=== PATIENT | female | born 1985 | race Caucasian/White ===

== ENCOUNTER → 2020-01-29 09:01 | Outpatient (CLI) | payer BC, SELFPAY ==
--- NOTE | ~2020-01-29 | US_ITS ---
EXAMINATION: US OB <= 14 weeks fetus DATE: 01/29/2020 09:27 INDICATION: Uncertain gestational dates TECHNIQUE: Real-time transabdominal obstetric ultrasound. FINDINGS: No prior studies for comparison. The uterus measures 12.7 x 7.6 x 9 cm. There is an intrauterine gestational sac, with pole iden tified. There is a subchorionic hemorrhage measuring 2.2 x 4.6 x 0.7 cm. The crown rump length measur es 2.04 cm, which correlates with a estimated gestational age of 8 weeks 4 days. heart tones are identified measuring 166 BPM. IMPRESSION: 1. SL IUP with an EGA of 8 weeks, 4 days (EDC by current ultrasound of 09/05/2020). 2: Small subchorionic hemorrhage. Reviewed, dictated and finalized at location A. IL MANAGEMENT KEYHOLDER IMPRESSION: 1. SL IUP with an EGA of 8 weeks, 4 days (EDC by current ultrasound of 09/06/19). 2: Small subchorionic hemorrhage.
== END ==
PROVIDERS: PCP Family Medicine; Visit Provider Nurse Practitioner
DX: O36.8910 Maternal care for other specified fetal problems, first trimester, not applicable or unspecified (principal); Z3A.08 8 weeks gestation of pregnancy
CPT/HCPCS: 76801

== ENCOUNTER → 2020-02-21 07:30 | Outpatient (CLI) | payer BC, SELFPAY ==
--- NOTE | ~2020-02-21 | US_ITS ---
EXAMINATION: US OB limited DATE: 02/21/2020 07:53 INDICATION: Follow-up subchorionic hemorrhage. TECHNIQUE: Real-time transabdominal and transvaginal obstetric ultrasound. FINDINGS: Comparison to 01/29/2020 The uterus measures 15.2 x 8.2 x 10.1 cm.. There is an intrauterine gestational sac, with pole identified. heart tones are identified measuring 159 bpm. There is a persistent small subchorio michael hemorrhage measuring 2.4 x 1.7 x 1.2 cm. IMPRESSION: 1. Single living intrauterine with heart rate of 159 bpm. 2: Persistent small subchorionic hemorrhage measuring 1.7 x 1.2 x 2.4 cm. Reviewed, dictated and finalized at location A. VISION PRODUCTION ASSISTANT
== END ==
PROVIDERS: Visit Provider Obstetrics & Gynecology Gynecology
DX: O36.8910 Maternal care for other specified fetal problems, first trimester, not applicable or unspecified (principal); Z3A.00 Weeks of gestation of pregnancy not specified
CPT/HCPCS: 76815

== ENCOUNTER → 2020-03-06 07:31 | Outpatient (CLI) | payer BC, SELFPAY ==
--- NOTE | ~2020-03-06 | US_ITS ---
US OB limited DATE: 03/06/2020 07:54 INDICATION: Subchorionic hematoma follow-up TECHNIQUE: Real-time imaging and Doppler analysis COMPARISON: 02/21/2020 Limited obstetrical ultrasound FINDINGS: Subchorionic hemorrhage currently measures 2 x 2.5 x 0.9 cm, mildly diminished in size comp ared to approximately 2.4 x 2.5 x 12 mm on 02/21/2020. The fetus is in vertex presentation, longitudinal lie. heart rate 149 bpm. Anterior placenta, lower margin 5.5 cm above the internal os. Normal amount of amniotic fluid by subjective assessment. IMPRESSION: Mild improvement of subchorionic hematoma compared to 02/21/2020 Reviewed, dictated and finalized at Location A. Reviewed, dictated and finalized at location A. CULTIVATOR
== END ==
PROVIDERS: Visit Provider Obstetrics & Gynecology Gynecology
DX: O36.8910 Maternal care for other specified fetal problems, first trimester, not applicable or unspecified (principal); Z3A.00 Weeks of gestation of pregnancy not specified
CPT/HCPCS: 76815

== ENCOUNTER 2020-08-29 06:17 | Inpatient (IN) | payer BC, OTHER, SELFPAY ==
[2020-08-29] VITALS (66 sets, daily range): BP systolic 112–154; BP diastolic 58–100; PULSE 46–93; RESP 16–18; TEMP 36.3–36.9; O2SAT 89–100; BMI 25.9
[2020-08-29] MEDS: fentaNYL CITRATE INJ (*CRX) 100 MCG/2 ML VIAL 50 MCG IV PUSH (07:14)
[2020-08-29] MEDS: LACTATED RINGERS 1,000 ML 125 ML IV CONT ×3 (07:15→08:42)
[2020-08-29] MEDS: HYDROCORTISONE SODIUM SUCCINATE 100 MG/2 ML VIAL 50 MG IV PUSH (07:17)
[2020-08-29 07:18] LABS: Basophils Absolute Auto 0.1 K/mm3 (0.0-0.1); Basophils Percent Auto 0.5 % (0.2-1.2); Eosinophils Absolute Auto 0.1 K/mm3 (0-0.3); Eosinophils Percent Auto 0.7 % (0-4.4); Hematocrit 36.7 % (37.0-47.0); Hemoglobin 12.4 g/dL (12.0-15.0); Immature Granulocyte Absolute 0.19 K/mm3 (0.00-0.031); Immature Granulocyte Percent A 1.3 % (0-0.5); Lymphocytes Absolute Auto 2.91 K/mm3 (0.9-3.2); Lymphocytes Percent Auto 19.7 % (18.3-44.2); Mean Corpuscular HGB Conc 33.8 g/dl (32-36); Mean Corpuscular Volume 88.9 fl (80-100); Mean Platelet Volume 13.4 fl (7.4-10.4); Monocytes Absolute Auto 0.8 K/mm3 (0.1-0.6); Monocytes Percent Auto 5.1 % (2.6-8.5); Neutrophils Absolute Auto 10.7 K/mm3 (1.3-6.7); Neutrophils Percent Auto 72.7 % (45.5-73.1); Platelet Count Result 100 k/mm3 (150-375); Red Blood Count 4.13 M/mm3 (4.2-5.4); Red Cell Distribution Width 13.1 % (11.5-14.5); White Blood Count 14.8 K/mm3 (4.5-10.0)
--- NOTE | 2020-08-29 07:28 | LDADM ---
This patient, Keila Dominguez, was admitted to Labor/Delivery/Recovery 104 on 08/29/20 at 06:17. Plans for labor, pain management and were discussed with patient. Patient/family oriented to hospital policies and general routines including ID bracelet, bed and alarms, visiting hours, pain management, procedures, bathroom and other care routines, personal items, smoking policy, room service/diet and guest tray routines, infant security routines, and visiting hours. Patient/Family are encouraged to report perceived risks to care and to ask questions if they do not understand what they are told or what they should do. See OBIX for further documentation.
[2020-08-29] MEDS: OXYTOCIN 30 UNITS/NS 500 ML 30 UNITS/500 ML BAG 999 UNITS IV CONT (09:54)
--- NOTE | 2020-08-29 10:05 | PM.OBPRVD ---
OB - Delivery Note Procedure Delivery date: 08/29/20 Procedure: Intrapartal events: None Induction method: none Delivery monitor: external FHT and external uterine Route of delivery: Laceration Description: Perineal - 1st Degree Specimen: Yes Quantitative Blood Loss (ml): 50 Anesthesia type: Epidural Disposition: floor Complications: Thrombocytopenia s/p IV hydrocortisone for prolonged steroid use [place] Baby Date of : 08/29/20 Time of : 09:52 Weeks of gestation at delivery: 38 Infant gender: Female Weight (pounds): 7 Weight (ounces): 10 presentation: vertex position: Left Occiput Anterior Placenta delivery description: Spontaneous cord vessel description: 3 Vessels, Nuchal Cord, Loose and Clamped/Cut score one minute: 8 score five minutes: 9
--- NOTE | 2020-08-29 10:08 | WPDOBADMIT ---
Obstetrics - Admit Note Admission Note: record reviewed. No pertinent additions to the history and/or any subsequent changes in the physical findings that are not consistent with the expected course of the were found. admitted in labor called received iv steroids for prevention due to prolonged steroid use. Additions to the history and/or subsequent changes in the physical findings follow. None.
[2020-08-29] MEDS: OXYTOCIN 30 UNITS/NS 500 ML 30 UNITS/500 ML BAG 125 UNITS IV CONT (10:36)
[2020-08-29] MEDS: BENZOCAINE 20% AER SPR (*SP) 56 GM CAN 1 SPRAY TOPICAL (12:34)
[2020-08-29] MEDS: WITCH HAZEL 40 PADS 1 PAD TOPICAL (12:34)
[2020-08-29] MEDS: ACETAMINOPHEN 325 MG TABLET 650 MG PO (18:56)
[2020-08-29] MEDS: IBUPROFEN 600 MG TABLET PO (22:40)
[2020-08-30] MEDS: IBUPROFEN 600 MG TABLET PO (04:02)
[2020-08-30 04:06] VITALS: BP 112/71; PULSE 50; RESP 18; TEMP 36.7
[2020-08-30 05:42] LABS: Hematocrit 34.2 % (37.0-47.0)
[2020-08-30 07:50] VITALS: BP 117/73; PULSE 51; RESP 16; TEMP 36.6; O2SAT 100
[2020-08-30] MEDS: ACETAMINOPHEN 325 MG TABLET 650 MG PO (08:07)
[2020-08-30] MEDS: MULTIVIT/MIN/PREN/FOL AC/IRON TABLET 1 TAB PO (09:12)
[2020-08-30] MEDS: predniSONE 10 MG TABLET PO (09:12)
[2020-08-30 09:52] LABS: Rapid Plasma Reagin Non-Reactive (NonReactive)
--- NOTE | 2020-08-30 11:37 | P.PNOB_ITS ---
OB - PN: Subj Subjective Date/time seen: 08/30/20 11:37 doing well no complaints desires home OB - PN: Obj Data Labs CBC & Chem 7: 08/30/20 03:49 Labs: Laboratory Results - last 24 hr 08/29/20 08/30/20 07:12 03:49 Hgb 11.0 L Hct 34.2 L RPR Non-reactive OB - PN A/P Assessment and Plan (1) (normal spontaneous vaginal delivery): Code(s): O80 - Encounter for full-term uncomplicated delivery Status: Acute Assessment and Plan: continue with pp care. Time Spent With Patient Time: Total time spent is greater than 50% in coordination of care (as docu mented) at patient's floor/unit and/or counseling patient: Exam Narrative: Exam Narrative: ff below umbilics
[2020-08-30 12:01] VITALS: BP 121/73; PULSE 60; RESP 16; TEMP 36.8; O2SAT 100
[2020-08-31 11:07] VITALS: BP 129/76; PULSE 64; RESP 16; TEMP 37; O2SAT 100
--- NOTE | 2020-09-13 11:52 | P.DS_ITS ---
DS: Admitting Diagnosis Admitting Diagnosis labor OB - DS: Summary OB Procedures : NST and Ultrasound OB Procedures Intrapartum: Spontaneous Vag Delivery OB Procedures: : None Time Spent with Patient Time attestation: Total time spent providing and/or coordinating discharge services: DS: Data Data Completed and Pending Completed studies during hospitalization: Pending at discharge 08/29/20 09:57 Surgical [PTH] Routine Discharge Plan Discharge Attending physician on discharge: Nisha Yeung Discharging Clinician: Vidal Little Patient Disposition: Home, Self-Care Activity: pelvic rest Diet: regular Discharge Instructions: Education: Mom and Baby Guide Given to: Mother Follow-Up: Call your delivering provider's office for an appointment to be seen in: 6 Weeks Mom and baby should come to the [facility] for the follow-up appointment. Appointment Date/Time: August 31, 2020 at 11:00 am What to expect at your follow-up visit: Physical Assessment Call [phone] if you are unable to keep your appointment time. BREAST CARE: * Wear a snug supportive bra. * For engorgement discomfort: Bottle Feeding: * May apply ice packs EPISIOTOMY/PERINEAL CARE: * Until bleeding stops, use your nury bottle after urinating * Change your pad frequently throughout the day * You may take sitz baths several times a day (fill your bathtub with warm water and soak for 20 minutes.) Do NOT bathe in the water * No tub baths until seen by your physician - You may shower ACTIVITY: * Rest as much as possible. * Do not exercise or lift anything heavier than your baby (such as laundry or other children.) * Avoid stairs or driving as much as possible. * Do not put anything into the vagina. No douching, tampons, or sexual activity until seen by physician. NOTIFY PHYSICIAN IF YOU HAVE ANY QUESTIONS OR IF ANY OF THE FOLLOWING SYMPTOMS OCCUR: * If your perineum becomes red, swollen, or more painful than what you have experienced in the hospital. * If your vaginal bleeding becomes foul smelling. * If your vaginal bleeding becomes more heavy than a period or if your bleeding changes from pink to bright red. However, you may pass an occasional walnut- sized clot once or twice for the first week . * If you experience a sharp, shooting pain in you calves. * If you discover a hard, reddened area on your breast or if you experience flu- like symptoms. DIET: * Eat regular, well-balanced meals. * Drink plenty of fluids daily. Weaning Prednisone: Per Prednisone 10mg daily for 1 week then 5 mg daily for 1 week then 5mg every other day for 1 week then discontinue Stand Alone Forms: General Discharge Information Follow-up/Referrals: Vidal Little MD [Physician] - Discharge Medications: Continued prednisone 10 mg Tablet 10 mg PO DAILY RF: 0 ferrous sulfate 325 mg (65 mg iron) Tablet,Delayed Release (Dr/Ec) 325 mg PO DAILY RF: 0 prenat.vits,chrissie,avd-beqc-eygub Tablet 1 tablet PO DAILY RF: 0 cholecalciferol (vitamin D3) [Vitamin D3] 50 mcg (2,000 unit) Capsule 50 mcg PO DAILY RF: 0 Date of admission: 08/29/20 06:17 Primary Care Provider: PHYSICIAN,INSTRUCTIONAL MATERIAL DIRECTOR Admitting Provider: Vidal Little Attending physician on admission: Vidal Little Condition: Stable
== END 2020-08-30 13:08 | disposition home or self-care (01) | DRG 807 ==
LOC: ANHOB2 08-30 12:39 → ANHLDR 08-31 10:33 → ANHOB2 08-31 10:33
PROVIDERS: Admitting Provider Obstetrics & Gynecology; Visit Provider Obstetrics & Gynecology
DX: O99.12 Other diseases of the blood and blood-forming organs and certain disorders involving the immune mechanism complicating childbirth (principal); Z37.0 Single live birth; D69.6 Thrombocytopenia, unspecified; Z3A.38 38 weeks gestation of pregnancy; O69.81X0 Labor and delivery complicated by cord around neck, without compression, not applicable or unspecified; O70.0 First degree perineal laceration during delivery
CPT/HCPCS: 36415; 85014; 85018; 85025; 85055; 86592; 86850; 86900; 86901; 88307; A9270; J1720; J2590; J2795; J3010; J7120; J7512

== ENCOUNTER → 2021-01-06 13:34 | Outpatient (CLI) | payer BC, SELFPAY ==
--- NOTE | ~2021-01-06 | US_ITS ---
EXAMINATION: US pelvic complete DATE: 01/06/2021 13:55 INDICATION: Excessive bleeding. Comparison:No prior studies for comparison. TECHNIQUE: Multiple transabdominal and endovaginal sonographic images of the pelvis performed. FINDINGS: The uterus measures 10 x 4.8 x 6 cm. The endometrial complex measures 8 mm. The right ovary measures 2.6 x 2.2 x 3 cm and the left ovary measures 2 x 1.8 x 2 cm. There are smal l follicles in each ovary. Normal doppler signal in both ovaries. There is no free fluid in the pelvis. There are no abnormal masses seen on either side. IMPRESSION: 1. Unremarkable pelvic ultrasound Reviewed, dictated and finalized at location B. S AND BUSINESS DEVELOPMENT MANAGER
== END ==
PROVIDERS: Visit Provider Nurse Practitioner
DX: N93.9 Abnormal uterine and vaginal bleeding, unspecified (principal)
CPT/HCPCS: 76856